=== PATIENT | male | born 1955 | race Caucasian/White ===

== ENCOUNTER 2022-10-07 21:18 | Emergency (ER) | payer BC ==
[~2022-10-07] VITALS: Ht 170.1 cm; Wt 108.0 kg
[~2022-10-07 21:18] MED LIST: DIOVAN; LIPITOR; LISINOPRIL; METOPROLOL; TEKTURNA
[2022-10-07] MEDS ORDERED: CARDIZEM CD240 M1 PO (21:28)
[2022-10-07] MEDS ORDERED: ZESTRIL40 MG PO (21:29)
[2022-10-07] MEDS ORDERED: NORVASC5 MG PO (21:29)
[2022-10-07] MEDS ORDERED: ATORVASTATIN CA80 M1 PO (21:30)
[2022-10-07] MEDS ORDERED: HYDR25T PO (21:30)
[2022-10-07] MEDS ORDERED: LOPRESSOR50 M1 PO (21:30)
[2022-10-07 21:56] LABS: BASO % 0.4 % (0.0-1.0); EOS # 0.1 10*3/uL (0.0-0.4); HEMATOCRIT 42.7 % (42.0-52.0); LYMPH # 1.8 10*3/uL (1.3-4.4); LYMPH % 23.5 % (27.0-41.0); MEAN CELL VOLUME 89.3 fl (80.0-94.0); MEAN CORPUSCULAR HGB 30.3 pg (27.0-31.0); MEAN PLATELET VOLUME 10.7 fl (9.6-12.3); MONO # 0.9 10*3/uL (0.1-1.0); MONO % 11.1 % (3.0-9.0); NEUT # 4.9 10*3/uL (2.3-7.9); NEUT % 63.2 % (47.0-73.0); PLATELET COUNT AUTOMATED 298 10*3/uL (130-400); RED BLOOD COUNT 4.78 10*6/uL (4.50-5.90); WHITE BLOOD COUNT 7.7 10*3/uL (4.8-10.8)
[2022-10-07 22:08] LABS: ACT PARTIAL THROMBO TIME 25.4 SECONDS (20.0-32.1)
[2022-10-07 22:11] LABS: ALKALINE PHOSPHATASE 61 U/L (46-116); BUN 26 mg/dl (9-23); CHLORIDE 104 mmol/L (98-107); POTASSIUM 3.4 mmol/L (3.4-5.1); SGPT/ALT 34 U/L (10-49); TOTAL PROTEIN 7.1 gm/dL (6.0-8.0)
[2022-10-07 22:46] LABS: BILIRUBIN Negative (Negative); BLOOD Negative (Negative); CLARITY Clear (Clear); COLOR Yellow (Yellow); GLUCOSE Negative (Negative); KETONE Negative (Negative); LEUKO ESTERASE Trace (Negative); NITRITE Negative (Negative); PH 5.5 (4.5-8.0); SPECIFIC GRAVITY 1.025 (1.001-1.030)
[2022-10-07 23:00] LABS: RBC 0-2 rbc/hpf (0-2)
== END 2022-10-08 04:12 | disposition home or self-care (01) ==
LOC: ED 21:18
PROVIDERS: Emergency Medicine
DX: R07.89 Other chest pain (principal); Z88.8 Allergy status to other drugs, medicaments and biological substances